=== PATIENT | female | born 1980 | race Hispanic/Latino ===

== ENCOUNTER 2023-05-30 14:58 | Emergency (ER) | payer BC, OTHER ==
[~2023-05-30] VITALS: Ht 160 cm; Wt 88.5 kg
[2023-05-30 15:01] VITALS: BP 128/79; PULSE 80; RESP 14
[2023-05-30 16:50] LABS: APPEARANCE,URINE CLEAR (CLEAR); BILIRUBIN,URINE NEGATIVE (NEGATIVE); COLOR,URINE LIGHT-YELLOW (YELLOW); GLUCOSE, URINE (UA) NEGATIVE (NEGATIVE); KETONES,URINE NEGATIVE (NEGATIVE); LEUKOCYTE ESTERASE ,URINE NEGATIVE Leu/uL (NEGATIVE); NITRATE,URINE NEGATIVE (NEGATIVE); OCCULT BLOOD,URINE NEGATIVE (NEGATIVE); PH,URINE 6.5 (5.0-8.0); PROTEIN,URINE 10 mg/dL (NEGATIVE); UROBILINOGEN,URINE 0.2 mg/dL (0.2-1.0)
[2023-05-30 16:52] LABS: ADD UA MICROSCOPIC YES
[2023-05-30 16:53] LABS: BACTERIA,URINE RARE /HPF (None Seen); MUCUS,URINE RARE LPF (None Seen); SQUAMOUS EPITHELIAL CELL,UR FEW /HPF (0-2)
[2023-05-30] MEDS ORDERED: MECLIZINE HCL 25 MG TABLET PO ONE (17:00)
[2023-05-30 17:08] LABS: RAPID GROUP A STREP negative (NEGATIVE)
[2023-05-30 17:18] LABS: COVID19 (SARS ANTIGEN RAPID) PRESUMPTIVE NEGATIVE (NEGATIVE); INFLUENZA TYPE A Negative For Type A (NEGATIVE); INFLUENZA TYPE B Negative For Type B (NEGATIVE)
[2023-05-30] MEDS ORDERED: CETI10TA57 PO (17:52)
== END 2023-05-30 18:43 | disposition home or self-care (01) ==
LOC: EDH 14:58
DX: H81.10 Benign paroxysmal vertigo, unspecified ear (principal); J06.9 Acute upper respiratory infection, unspecified; Z20.822 Contact with and (suspected) exposure to COVID-19
CPT/HCPCS: 81001; 87426; 87804; 87880